=== PATIENT | female | born 1955 | race Caucasian/White ===

== ENCOUNTER → 2016-05-13 | Outpatient (CLI) | payer BC ==
[~2016-05-13] MED LIST: BUPRTAB51 PO; GLUCTAB4 PO; LEVO100T PO; LITH300T2 PO; MAGN1CAP2 PO; OMEG10007 PO; SYN50 PO; VITACAP37 PO
--- NOTE | 2016-05-13 15:12 | MAMMOGRAPHY REPORT ---
BILATERAL DIGITAL SCREENING MAMMOGRAM WITH CAD: 05/13/2016 CLINICAL HISTORY: Routine screening examination. History of breast implants. TECHNIQUE: Bilateral CC and MLO views of the breasts with and without implant displacement views wer e obtained. Current study was also evaluated with a Computer Aided Detection (CAD) system. COMPARISON: Comparison is made to exams dated: 05/11/2015 mammogram, 05/27/2013 mammogram, 03/02/2012 mammogram, 06/13/2010 mammogram, 04/07/2009 mammogram - [facility], and 11/28/2006. BREAST COMPOSITION: The tissue of both breasts is heterogeneously dense, which may obscure small ma sses. FINDINGS: There is a newly visualized 4.7 mm mass in the lateral, middle one third of the left [address], best seen on the implant displaced CC view but thought to project superiorly on the implant disp laced MLO view. Although this could represent a cyst, further evaluation with spot compression zelalem synthesis HD views and targeted ultrasound are recommended. A 5.5 mm nodular asymmetry is seen on t he implant displaced left MLO view just inferior to the posterior nipple line that could represent a n additional cyst although additional spot compression tomosynthesis views and possibly ultrasound a re recommended. There are possible grouped microcalcifications in the 6:00 anterior left breast war ranting spot magnification views. No other suspicious mass, architectural distortion or cluster of microcalcifications is seen. IMPRESSION: ACR BI-RADS CATEGORY 0: INCOMPLETE EVALUATION: NEED ADDITIONAL IMAGING EVALUATION The newly visualized 4.7 mm mass, 5.5 mm nodular asymmetry and possible grouped microcalcifications in the left breast all need additional imaging evaluation. The patient will be called to schedule an appointment. Approximately 10% of breast cancers are not detected with mammography. A negative mammographic repor t should not delay biopsy if a clinically suggestive mass is present. Kalie Keen M.D. ay/:05/13/2016 14:47:57 Joiner: Shefali MORRIS(Shea)(Eyal)(BD), [facility] letter sent: Addl Imaging 0 BI-RADS Code: ACR BI-RADS Category 0: Incomplete Evaluation: Need Additional Imaging Evaluation
== END | disposition home or self-care (01) ==
LOC: C.MAMM 10:33
PROVIDERS: ATTEND Family Medicine
DX: Z12.31 Encounter for screening mammogram for malignant neoplasm of breast (principal); Z98.82 Breast implant status; N63 Unspecified lump in breast; N64.89 Other specified disorders of breast

== ENCOUNTER → 2016-06-18 | Outpatient (CLI) | payer BC ==
--- NOTE | 2016-06-18 16:37 | MAMMOGRAPHY REPORT ---
UNILATERAL LEFT DIGITAL DIAGNOSTIC MAMMOGRAM TOMOSYNTHESIS AND TARGETED LEFT ULTRASOUND: 06/18/2016 CLINICAL HISTORY: 60-year-old woman with a history of bilateral subpectoral saline implants called b ack from screening mammography for left breast microcalcifications and nodular asymmetries. TECHNIQUE: Spot magnification left CC and ML; spot compression CC and MLO 2-D digital and tomosynthe sis images of the left breast were obtained. COMPARISON: Comparison is made to exams dated: 05/13/2016 mammogram, 05/11/2015 mammogram, 05/27/2013 m ammogram, 03/02/2012 ultrasound, 03/02/2012 mammogram, and 06/13/2010 mammogram - [facility]. BREAST COMPOSITION: The tissue of the left breast is heterogeneously dense, which may obscure small masses. FINDINGS: There are scattered punctate microcalcifications in the anterior left breast, minimally in creased in number comparing back to prior available mammograms, particularly the 2013 mammogram. Ho wever, there is no suspicious grouping or cluster of microcalcifications. No suspicious morphology. There is persistence of at least 2 circumscribed masses in the lateral and medial left breast seen on the spot magnification view, measuring 4 and 6 mm, respectively. Further evaluation with ultras ound was performed throughout the left breast. Real-time high-resolution sonographic evaluation was performed the left breast. In the 11:30 to 12: 00 axis, 1 cm from the nipple, there is a parallel lobulated mixed echogenicity hypoechoic and isoec hoic solid versus cystic mass measuring 5.2 x 2.1 x 4.9 mm. In the 3:00 left breast, 6 cm from the nipple, there is an oval circumscribed solid mass versus focal duct ectasia measuring 3.5 x 1.1 x 3. 3 mm. There is a more cystic appearing oval parallel circumscribed mass in the 4:00 left breast, 5 cm from the nipple, measuring 4.0 x 1.4 x 4.7 mm. Another isoechoic solid-appearing mass in the 7:0 0 left breast, 1 cm from the nipple, measures 4.6 x 1.8 x 4.2 mm. No suspicious irregular solid mas s or complex solid and cystic mass is clearly identified. It is unclear which of these benign-appea ring solid versus cystic masses correlates with the mammographic masses, however they are all benign in appearance. A short interval follow-up targeted left breast ultrasound is recommended to ensure stability in 6 months. IMPRESSION: ACR-BI-RADS CATEGORY 3: PROBABLY BENIGN, TARGETED ULTRASOUND ACR-BI-RADS CATEGORY 3: WI OBABLY BENIGN 1. There are scattered punctate microcalcifications in the lower inner middle and anterior left belinda ast that are minimally increased in number compared to prior mammograms but most likely benign. No suspicious grouping or cluster is currently identified. A short interval follow-up diagnostic mammo gram including spot magnification views is recommended to ensure stability in 6 months. 2. There is increasingly prominent nodularity of the left breast seen mammographically, with scatte red benign-appearing solid versus cystic masses versus duct ectasia throughout the left breast on ul trasound. A short interval follow-up diagnostic mammogram including tomosynthesis images and repeat targeted ultrasound in the 11:30 to 12:00, 3:00, 4:00 and 7:00 axes is recommended in 6 months. These results and recommendations were discussed with the patient at the time of the exam. She tenta tively scheduled a follow-up appointment prior to leaving our department. Approximately 10% of breast cancers are not detected with mammography. A negative mammographic repor t should not delay biopsy if a clinically suggestive mass is present. Kalie Keen M.D. ay/:06/18/2016 15:07:36 Document Examiner: Yazmin Torres, [facility] letter sent: Follow Up Recommended 3 BI-RADS Code: ACR-BI-RADS Category 3: Probably Benign Ultrasound BI-RADS: ACR-BI-RADS Category 3: P robably Benign
== END | disposition home or self-care (01) ==
LOC: C.MAMM 09:02
PROVIDERS: ATTEND Family Medicine
DX: R92.0 Mammographic microcalcification found on diagnostic imaging of breast (principal); Z98.82 Breast implant status

== ENCOUNTER → 2016-09-02 | Outpatient (CLI) | payer BC | END | disposition home or self-care (01) | LOC: C.CPL 10:50 | PROVIDERS: ATTEND Orthopaedic Surgery | DX: M75.41 Impingement syndrome of right shoulder (principal) ==

== ENCOUNTER 2016-09-09 18:45 | Emergency (ER) | payer BC ==
[~2016-09-09] VITALS: Ht 175.3 cm; Wt 77.2 kg
[~2016-09-09 18:45] MED LIST changes: -BUPRTAB51 PO; -GLUCTAB4 PO; -LEVO100T PO; -MAGN1CAP2 PO; -OMEG10007 PO; -VITACAP37 PO
[2016-09-09 18:48] VITALS: TEMP 36.7; Ht 175.3 cm; Wt 77.2 kg
[2016-09-09] MEDS ORDERED: MAGN1CAP2 PO (19:18)
[2016-09-09] MEDS ORDERED: BUPRTAB51 PO (19:18)
[2016-09-09] MEDS ORDERED: VITACAP37 PO (19:18)
[2016-09-09] MEDS ORDERED: GLUCTAB4 PO (19:18)
[2016-09-09] MEDS ORDERED: OMEG10007 PO (19:18)
[2016-09-09] MEDS ORDERED: LEVO100T PO (19:18)
--- NOTE | 2016-09-09 19:56 | DIAGNOSTIC IMAGING REPORT ---
ULTRASOUND VENOUS DOPPLER ULTRASOUND THE RIGHT UPPER EXTREMITY CLINICAL HISTORY: Right arm swelling. History of right shoulder surgery COMPARISON STUDY: No previous studies for comparison. FINDINGS: No intraluminal thrombus was visualized. The internal jugular, subclavian, axillary, cephalic, brachial, basilic, radial, and ulnar veins were patent. IMPRESSION: No evidence of right upper extremity DVT. Electronically signed by: Acosta Simons M.D. 09/09/2016 7:55 PM Dictated Date/Time: 09/09/2016 7:54 PM
--- NOTE | 2016-09-09 20:09 | EMERGENCY ROOM VISIT NOTE ---
ED Visit Note First contact with patient: 18:52 CHIEF COMPLAINT: Right arm redness and swelling after shoulder surgery HISTORY OF PRESENT ILLNESS: Patient is a [id number] 61-year-old white female who is status post right shoulder arthroscopic surgery performed by Dr. Phipps on 09/05. Patient has been using an arm sling for support. She has been applying ice intermittently for discomfort and using Percocet for pain, her last dose was very early this morning when she could not sleep. She was at physical therapy today and the therapist noticed some redness and swelling, primarily in her forearm. It is slightly tender to palpation and her therapist was concerned regarding a possible DVT. The patient denies any personal or family history of DVT or PE. She has been experiencing expected postoperative pain at the shoulder, denies any pain to the remainder of the right arm. No numbness, tingling or weakness. She has been performing physical therapy exercises as instructed. She denies any chest pain, palpitations or shortness of breath. REVIEW OF SYSTEMS: Review of systems as per HPI. All other systems reviewed were negative. 10 systems reviewed. PMH: Electronic medical records are reviewed and summarized as above/below. See Problem List. SOCIAL HISTORY: Patient lives at home with her . Retired. Nonsmoker. PHYSICAL EXAM: Vital Signs: Reviewed Nurse's notes. CONSTITUTIONAL: Patient is a pleasant, well-appearing 61-year-old white female who is awake and alert and in no acute distress. HEART: Regular rate and rhythm. LUNGS: Clear to auscultation. NEUROLOGICAL: Alert oriented, coherent. PERRL, EOMs full, gait normal. EXTREMITIES: Examination of the right upper extremity shows her resting and an arm sling. Arm sling was removed. Patient has multiple arthroscopic surgical incisions over the shoulder that are covered with Xeroform and bandages. These were not removed. The shoulder is not significantly swollen on exam. She has diffuse tenderness over the shoulder with palpation and with gentle passive range of motion. The elbow is nontender to palpation, wrist is nontender to palpation and elbow and wrist range of motion are full. The patient has a slight erythema noted on the palmar aspect of the forearm, extending into the medial aspect of the upper arm over the biceps. It is not hot, indurated or significantly tender to palpation. Radial and ulnar pulses are easily palpable. Capillary refills less than 2 seconds. Sensation light touch is intact over the right upper extremity. EMERGENCY DEPARTMENT COURSE: Ultrasound of the right upper extremity was obtained and was negative for DVT. I discussed with the patient possibilities to explain her discoloration and swelling, including but not limited to reaction to the surgical prep, dependent edema/swelling from the arthroscopic fluid in the shoulder, among others. She does not have any physical exam findings to suspect cellulitis. DVT and superficial thrombophlebitis are felt to be unlikely. The patient was reassured. She will continue her postoperative instructions according to her surgeon, and keep her physical therapy appointment. She was discharged home in good condition. Medication reconciliation: I attest that I have personally reviewed the patient' s current medication list. Blood pressure screening : Patient was found to have normal blood pressure on screening and does not require follow-up. ULTRASOUND VENOUS DOPPLER ULTRASOUND THE RIGHT UPPER EXTREMITY CLINICAL HISTORY: Right arm swelling. History of right shoulder surgery COMPARISON STUDY: No previous studies for comparison. FINDINGS: No intraluminal thrombus was visualized. The internal jugular, subclavian, axillary, cephalic, brachial, basilic, radial, and ulnar veins were patent. IMPRESSION: No evidence of right upper extremity DVT. Problem List Medical Problems: (1) Bipolar Disorder, Unspecified Status: Chronic (2) Hypothyroidism Nos Status: Chronic Surgical Problems: (1) History of shoulder surgery Status: Resolved Current/Historical Medications Scheduled Bupropion (Wellbutrin-Xl), 300 MG PO DAILY Fish Oil (Britton-3), 1 CAP PO DAILY Dboblwheidp-Evo-Shi C-Manganes (Glucosamine Msm Complex), 1 TAB PO DAILY Levothyroxine Sodium (Synthroid), Unknown Dose PO DAILY [place] Carbonate ([place] Carbonate), 300 MG PO TID Magnesium Oxide (Mg Supplement (Magnesium), Unknown Dose PO DAILY Vitamin E (E-400), Unknown Dose PO DAILY Allergies Coded Allergies: No Known Allergies (Verified , 09/09/16) Vital Signs Date Time Temp Pulse Resp B/P (MAP) Pulse Ox O2 Delivery O2 Flow Rate FiO2 09/09/16 20:18 78 18 129/71 99 Room Air 09/09/16 18:48 36.7 78 19 104/71 98 Room Air Departure Information Impression Primary Impression: Swelling of right upper extremity Additional Impression: History of arthroscopic surgery of shoulder Referrals Javier Phipps,D.O. (PCP) Patient Instructions [facility] Additional Instructions Continue all postoperative instructions according to Dr. Phipps. Return to the Emergency Department as needed. Problem Qualifiers
[2016-09-09 20:18] VITALS: BP 129/71; PULSE 78; O2SAT 99
== END 2016-09-09 20:19 | disposition home or self-care (01) ==
LOC: C.EDB 18:45 → C.EDD 20:19
DX: R22.31 Localized swelling, mass and lump, right upper limb (principal); Z98.890 Other specified postprocedural states; F31.9 Bipolar disorder, unspecified; E03.9 Hypothyroidism, unspecified; Z79.899 Other long term (current) drug therapy

== ENCOUNTER → 2017-02-10 | Outpatient (CLI) | payer BC ==
[~2017-02-10] MED LIST changes: +BUPRTAB51 PO; +GLUCTAB4 PO; +LEVO100T PO; +MAGN1CAP2 PO; +OMEG10007 PO; -SYN50 PO; +VITACAP37 PO
--- NOTE | 2017-02-11 14:30 | MAMMOGRAPHY REPORT ---
UNILATERAL LEFT DIGITAL DIAGNOSTIC MAMMOGRAM TOMOSYNTHESIS WITH CAD AND TARGETED LEFT ULTRASOUND: CLINICAL HISTORY: 61-year-old woman presents for follow-up in the left breast for masses, asymmetries and microcalcifications. Patient has a history of subpectoral saline implants. TECHNIQUE: Left CC and MLO views with and without implant displacement views were obtained. Tomosynt hesis was performed on the implant displaced views. Spot magnification left CC and ML views were als o obtained. Current study was also evaluated with a Computer Aided Detection (CAD) system. COMPARISON: Comparison is made to exams dated: 06/18/2016 ultrasound, 06/18/2016 mammogram, 05/13/2016 mammogram, 05/11/2015 mammogram, 05/27/2013 mammogram, and 03/02/2012 mammogram - [facility]. BREAST COMPOSITION: The tissue of the left breast is extremely dense, which lowers the sensitivity o f mammography. FINDINGS: A left subpectoral saline implant is intact. The spot magnification views of the left belinda ast redemonstrate scattered and loosely grouped punctate microcalcifications in the anterior breast. These are best identified on the spot magnification cc views. No new suspicious microcavitation regino cifications are identified. There are masses versus nodular asymmetries in the superior left breast, which appear similar in number and configuration comparing to the prior spot compression MLO tomosyn thesis images. No new suspicious spiculated or irregular mass is identified. No developing asymmetr y. Targeted ultrasound was performed in the left breast with particular attention to the 11:30, 3:00, 4: 00 and 7:00 axes. The ultrasound is suboptimal given recent left arm fracture with surgery and inabi lity to position. In the approximate 11:00 left breast, 4 cm from the nipple, previously documented 12:00 axis, 1 cm from the nipple, a lobulated predominately cystic mass is identified. The differenc e in location is likely secondary to positioning. There is a multiloculated predominantly anechoic c ystic appearing mass measuring 4.3 x 3.3 x 4.5 mm. Visually this appears increased comparing to the prior ultrasound and definitive characterization with ultrasound guided cyst aspiration is recommende d. In the 3:00 left breast, 6 cm from the nipple, there is an oval parallel circumscribed hypoechoic solid versus cystic mass versus normal fat lobule measuring 3.7 x 1.3 x 3.7 mm. In the 4:00 left br east, 5 cm from the nipple, a anechoic cystic appearing mass is again identified measuring 3.0 x 1.3 mm. In the 7:00 left breast, 1 cm from the nipple a hypoechoic solid versus cystic mass is again jackie ntified measuring 4.0 x 1.4 mm, previously measured 4.6 x 1.9 x 4.2 mm. IMPRESSION: ACR BI-RADS CATEGORY 4: SUSPICIOUS, TARGETED ULTRASOUND ACR BI-RADS CATEGORY 4: SUSPICIO US 1. Ultrasound guided cyst aspiration is recommended for a multilobulated cyst versus cystic cluster in the 11:00 left breast that appears increased in size comparing to prior ultrasound images. The di fference in the location is likely secondary to positioning. 2. Other benign-appearing tiny solid versus cystic masses throughout the left breast on ultrasound i n the 3:00, 4:00 and 7:00 axes are stable and most likely benign. 3. Overall stable mammographic appearance of the left breast including stable nodularity on the zelalem synthesis images and stable benign-appearing punctate microcalcifications. 4. Pending benign cytology results from the left breast aspiration, another short interval six-month follow-up left diagnostic mammogram including spot magnification views and repeat ultrasound is ad mmended to ensure longer stability of the nodularity and microcalcifications. Annual right mammograp hy will also be due at that time. These results and recommendations were discussed with the patient at the time of the exam. She tenta tively scheduled the left breast cyst aspiration prior to leaving our department. Approximately 10% of breast cancers are not detected with mammography. A negative mammographic report should not delay biopsy if a clinically suggestive mass is present. Kalie Keen M.D. ay/:02/10/2017 14:57:[address] Security: Yazmin MORRIS(Shea)(M), [facility] letter sent: Abnormal 4/5 BI-RADS Code: ACR BI-RADS Category 4: Suspicious Ultrasound BI-RADS: ACR BI-RADS Category 4: Suspici ous
== END | disposition home or self-care (01) ==
LOC: C.MAMM 13:56
PROVIDERS: ATTEND Family Medicine
DX: R92.8 Other abnormal and inconclusive findings on diagnostic imaging of breast (principal); N63.20 Unspecified lump in the left breast, unspecified quadrant

== ENCOUNTER → 2017-02-19 | Outpatient (CLI) | payer BC ==
--- NOTE | 2017-02-19 13:43 | MAMMOGRAPHY REPORT ---
ASPIRATION LEFT BREAST: 02/19/2017 CLINICAL HISTORY: Left 11:00 breast mass, for which aspiration was recommended. PATIENT CONSENT: The procedure and risks of ultrasound-guided cyst aspiration were discussed in full with the patient. Both oral and written consents were obtained. PROCEDURE DESCRIPTION: With ultrasound guidance, aseptic technique, and 1% lidocaine as a local anest hetic, the mass of concern in the right 11:00 breast, 4 cm from the nipple, was aspirated to completi on. Benign type pinkish yellow fluid was aspirated and sent to cytology for analysis. Direct pressu re was applied to the site immediately post procedure and hemostasis was achieved. The patient melissa ated the procedure without complication. She was given wound care instructions. COMPARISON: Comparison is made to exams dated: 02/10/2017 ultrasound, 02/10/2017 mammogram, 7 ultrasound, 06/18/2016 mammogram, 05/13/2016 mammogram, and 05/11/2015 mammogram - [facility]. IMPRESSION: ASPIRATION Ultrasound guided aspiration of the left 11:00 breast cyst. The aspirated fluid was sent to cytology for analysis. The patient will receive cytology results from her referring provider. Pending benig n cytology results, recommend bilateral diagnostic tomosynthesis mammograms and possible ultrasound i n 6 months. Maxine Jewell M.D. /:02/19/2017 11:28:52 Dining Car Waiter/Waitress: Susanna MORRIS(R)(M), [facility]
== END | disposition home or self-care (01) ==
LOC: C.MAMM 09:51
PROVIDERS: ATTEND Family Medicine
DX: R92.8 Other abnormal and inconclusive findings on diagnostic imaging of breast (principal); N63.20 Unspecified lump in the left breast, unspecified quadrant; N60.02 Solitary cyst of left breast

== ENCOUNTER → 2017-08-13 | Outpatient (CLI) | payer OTHER ==
--- NOTE | 2017-08-14 14:15 | MAMMOGRAPHY REPORT ---
BILATERAL DIGITAL DIAGNOSTIC MAMMOGRAM TOMOSYNTHESIS WITH CAD AND TARGETED LEFT ULTRASOUND: 08/13/2017 CLINICAL HISTORY: 62-year-old woman presents at time of annual bilateral screening exam. Also close follow-up in the left breast for nodular asymmetries and anterior microcalcifications. She is 6 kizzy hs status post a benign aspiration of a cyst in the 11:00 left breast. TECHNIQUE: Bilateral CC and MLO views of the breasts with and without implant displacement views were obtained. Current study was also evaluated with a Computer Aided Detection (CAD) system. COMPARISON: Comparison is made to exams dated: 02/19/2017 aspiration, 02/10/2017 ultrasound, 017 mammogram, 06/18/2016 ultrasound, 06/18/2016 mammogram, and 05/13/2016 mammogram - [facility]. BREAST COMPOSITION: The tissue of both breasts is heterogeneously dense, which may obscure small mas ses. FINDINGS: Bilateral subpectoral saline implants are intact. The implant displaced views demonstrate the loosely grouped punctate microcalcifications in the anterior left breast while and therefore abbey tional spot magnification views were deferred, given that the patient already underwent 8 mammographi c views. When comparing to prior spot magnification views obtained of the left breast dating back to 06/18/2016, these loosely grouped punctate microcalcifications are unchanged in number and distributi on and likely represent benign fibrocystic change. In retrospect, comparing to more remote prior [facility] mograms, they are thought to be identified on the 2014 mammograms and with 4 years of stability are c onsidered benign. Can reassess at time of next annual screening exam. The lobulated mass in the approximate 3:00 left breast seen on the implant displaced views is larger in size comparing to the prior exams currently measuring 6.8 mm. Further evaluation with ultrasound was performed. No new suspicious masses, calcifications, areas of distortion or asymmetries are identified in the ri ght breast. Targeted ultrasound was performed in the left breast at 3:00 and 4:00. In the 3:00 axis, 4 cm from t he nipple, there is a lobulated parallel anechoic benign simple cyst measuring 7.1 x 2.7 x 6.5 mm. T his correlates with the increasing mammographic mass and is benign. A second smaller cyst is again s een in the 4:00 left breast, 5 cm from the nipple, measuring 4.3 x 1.4 x 2.4 mm. IMPRESSION: ACR BI-RADS CATEGORY 2: BENIGN, TARGETED ULTRASOUND ACR BI-RADS CATEGORY 2: BENIGN 1. Stable mammographic appearance of the right breast, without mammographic evidence of malignancy. Advise follow-up in 1 year. 2. The microcalcifications in the anterior left breast are stable on prior spot magnification views dating back to 2016 and prior to the implant displaced views dating back to 2013, therefore considere d benign. No further close follow-up is needed at this time. 3. An increasing lobulated 6.8 mm mass in the 3:00 left breast seen mammographically corresponds wit h a benign anechoic simple cyst on ultrasound. Overall, there is no mammographic or targeted sonogra phic evidence of malignancy bilaterally. Recommend routine screening mammography in 1 year. Approximately 10% of breast cancers are not detected with mammography. A negative mammographic report should not delay biopsy if a clinically suggestive mass is present. Kalie Keen M.D. ay/:08/13/2017 15:19:42 Rod Filler: Yazmin MORRIS(Shea)(Eyal), [facility] letter sent: Normal 1/2 BI-RADS Code: ACR BI-RADS Category 2: Benign Ultrasound BI-RADS: ACR BI-RADS Category 2: Benign
== END | disposition home or self-care (01) ==
LOC: C.MAMM 13:56
PROVIDERS: ATTEND Family Medicine
DX: N64.9 Disorder of breast, unspecified (principal); R92.0 Mammographic microcalcification found on diagnostic imaging of breast